=== PATIENT | female | born 1990 ===

== ENCOUNTER 2016-12-01 14:00 | Outpatient (RCR) | payer OTHER | END 2016-12-30 | disposition home or self-care (01) | LOC: WCC 14:00 | DX: L97.322 Non-pressure chronic ulcer of left ankle with fat layer exposed (principal); E10.42 Type 1 diabetes mellitus with diabetic polyneuropathy; E03.9 Hypothyroidism, unspecified; Z79.4 Long term (current) use of insulin | CPT/HCPCS: 82962; G0277; G0463; 99204 ==

== ENCOUNTER 2017-01-02 10:30 | Outpatient (RCR) | payer BC, OTHER | END 2017-01-29 | disposition home or self-care (01) | LOC: WCC 10:30 | DX: L97.322 Non-pressure chronic ulcer of left ankle with fat layer exposed (principal); E10.42 Type 1 diabetes mellitus with diabetic polyneuropathy | CPT/HCPCS: 82962; G0277 ==